=== PATIENT | female | born 1995 | race Caucasian/White ===

== ENCOUNTER 2016-11-18 16:54 | Emergency (ER) | payer BC, OTHER ==
[2016-11-18] MEDS ORDERED: diphenhydrAMINE HCL 50 MG/ML VIAL IV ONE (17:13)
[2016-11-18] MEDS ORDERED: NORMAL SALINE 1,000 ML IV ONE (17:14)
[2016-11-18] MEDS ORDERED: METOCLOPRAMIDE HCL 5 MG/ML VIAL IV ONE (17:14)
[2016-11-18] MEDS ORDERED: KETOROLAC TROMETHAMINE 30 MG/ML VIAL IV ONE (17:14)
[2016-11-18] MEDS ORDERED: diphenhydrAMINE HCL 50 MG/ML VIAL ONE (17:17)
[2016-11-18] MEDS ORDERED: METOCLOPRAMIDE HCL 5 MG/ML VIAL ONE (17:18)
[2016-11-18] MEDS ORDERED: KETOROLAC TROMETHAMINE 30 MG/ML VIAL ONE (17:18)
--- NOTE | 2016-11-18 17:24 | ERNOTE ---
Headache ER HPI - Narrative Date of Service: 11/18/16 - General Presenting Symptoms: "migraine" Time Seen by Provider: 11/18/16 17:08 Source: patient Exam Limitations: no limitations - Immun/Allergies/Home Medications Immunizations: IMMUNIZATION HX Immunizations Up to Date Yes History of Influenza Vaccine Yes Hx Pneumococcal Vaccination No Allergies/Adverse Reactions: Allergies No Known Allergies Allergy (Verified 05/20/16 16:48) Home Medications: HOME MEDICATIONS NK [No Home Medication] 11/18/16 [Last Taken Unknown] - History of Present Illness Narrative: Pt. comes in with c/o Headache that is frontal and post occiput with floaters and spots for 7 hours. Pt. states that she has had headaches like this previously when she was and is currently having her first menses since her baby was born 4 months ago. Pt. states that she also has some dizziness but denies any chest pain or SOB and states that this is not the worst headache ever and denies any blurred vision. Review of Systems - Review of Systems Constitutional: Present: fatigue. Absent: recent illness, fever, chills, weakness, malaise EYE: Present: other - floaters and black spots. Absent: blurred vision, double vision, vision changes ENT: Present: no symptoms reported. Absent: nose congestion, nasal drainage, sore throat Respiratory: Present: no symptoms reported. Absent: shortness of breath, cough , wheezing Cardiology: Present: no symptoms reported Gastrointestinal/Abdominal: Present: nausea, vomiting. Absent: diarrhea, abdominal pain Genitourinary: Present: no symptoms reported Musculoskeletal: Present: no symptoms reported. Absent: back pain, joint pain Skin: Present: no symptoms reported Neurological: Present: headache, dizziness/light-headedness. Absent: numbness, tingling All Other Systems: All systems neg except as marked - Patient's Past Medical History Patient History - Medical: No pertinent hx Patient History - Cardiac/Respiratory: No pertinent hx Patient History - Cancer: No Hx of Cancer Patient History - Surgical Procedures: D & C Patient History - Other: None - Family History Father Family History - Cardiac/Respiratory: Hypertension, Hyperlipidemia - Social History Living Situations: home Psych History: No pertinent hx Does anyone smoke in the home?: No Smoking Status: Never smoker Alcohol Use: none Drug Use: none - Immunizations Immunizations Up to Date: Yes Hx Pneumococcal Vaccination: No History of Influenza Vaccine: Yes Physical Exam - Physical Exam General Appearance: Present: wd/wn, alert, no apparent distress Eye Exam: Normal inspection: bilateral, PERRL: bilateral, EOMI: bilateral Ears, Nose, Throat: Present: normal ENT inspection, normal pharynx Neck: Present: normal inspection, nontender. Absent: lymphadenopathy (R), lymphadenopathy (L) Respiratory: Present: no respiratory distress, normal breath sounds, no accessory muscle use, chest nontender, lungs clear Cardiovascular/Chest: Present: regular rate, rhythm, no murmur, normal peripheral pulses Gastrointestinal/Abdominal: Present: normal bowel sounds, nontender, nondistended, soft, no organomegaly Back Exam: Present: normal inspection, normal range of motion, no CVA tenderness , no vertebral tenderness Extremity Exam: Present: normal inspection, non-tender, normal range of motion, no edema Neurological Exam: Present: alert, oriented, normal mood/affect, no motor/ sensory deficits, customer support specialist II-XII nml as tested, normal cerebellar test Skin Exam: Present: normal color, warm/dry. Absent: pallor, skin rash ED Progress - Results and Orders Patient's Lab Results:: I have reviewed the patient's lab results. - Vital Signs Patient's Vital Signs:: I have reviewed the patient's vital signs. Vital Signs: Vital Signs 11/18/16 16:56 Temperature 36.0 C L Pulse Rate 102 H Respiratory 16 Rate Blood Pressure 110/80 O2 Sat by Pulse 99 Oximetry - Progress/Reassessment Chief Complaint: Headache Progress:: Pain free at discharge Departure Clinical Impression: Migraine Qualifiers: Migraine type: without aura Status migrainosus presence: without status migrainosus Intractability: not intractable Qualified Code(s): G43.009 - Migraine without aura, not intractable, without status migrainosus - Departure Disposition: Home self-care Condition: Good Instructions: Recurrent Migraine Headache, [id number] Additional Instructions: Take 600mg if Ibuprofen and 25mg of Benedryl every 6 hours as needed for migraine. Referrals: Devyn Sorensen MD [Primary Care Provider] -
[2016-11-18 17:37] LABS: Hematocrit 39.1 % (37.0-47.0); Hemoglobin 12.8 gm/dL (12.5-16.0); Mean Cell Volume 90.1 fl (78-100); Mean Corpuscular Hemoglobin 29.5 pg (27-31); Mean Corpuscular Hgb Conc 32.7 g/dl (32-36); Mean Platelet Volume 9.9 fl (6.0-9.5); Neutrophil # 4.3 K/mm3 (1.3-6.0); Platelet Count 246 K/mm3 (150-450); Red Blood Count 4.34 M/mm3 (4.2-5.4); Red Cell Distribution Width 12.8 % (11.5-14.0); White Blood Count 7.2 K/mm3 (4.0-10.5)
[2016-11-18 17:50] LABS: Albumin * 3.7 gm/dl (3.4-5.0); Anion Gap 10.5 mmol/L (6.8-13.8); BUN/Creatinine Ratio 13.6 (9.0-21.6); Bilirubin, Total 0.2 mg/dL (0.0-1.1); Calcium * 9.1 mg/dL (7.9-10.9); Carbon Dioxide 28.6 mmol/L (24-32.6); Potassium 4.1 mmol/L (3.4-4.6); Total Protein 7.6 gm/dL (6.2-8.2)
[2016-11-18 17:51] VITALS: BP 105/72
== END 2016-11-18 18:13 | disposition home or self-care (01) ==
LOC: ER 16:54
DX: G43.009 Migraine without aura, not intractable, without status migrainosus (principal)